=== PATIENT | female | born 1995 | race Caucasian/White ===

== ENCOUNTER 2018-01-30 12:55 | Emergency (ER) | payer OTHER ==
[~2018-01-30] VITALS: Ht 157.5 cm; Wt 59.0 kg
[2018-01-30 13:04] VITALS: BP 121/70
--- NOTE | 2018-01-30 13:09 | NUR ---
URINE CUP HANDED TO PT
--- NOTE | 2018-01-30 13:15 | NUR ---
PT PRESENTS TO ED W C/O EPIGASTRIC PAIN X TODAY W N/V/D. PT DENIES ANY OTHER SMYPTOMS. PER PT "I HAVE BEEN HAVING THE PAIN AND THROWING UP SINCE THIS MORNING I TOOK TWO PILLS FROM [facility] FOR THE VOMITTING AND I THREW THEM BACK UP" PT UNABLE TO RECALL MEDICATION NAME. BOWEL SOUNDS HYPOACTIVE X 4 QUADRANTS. ABDOMEN IS SOFT, NONTENDER. PT VERBALIZES PAIN UPON PALPATION OF EPIGASTRIC REGION. PT PLACED ON MONITOR. VSS. PENDING MD ADLER.
[2018-01-30] MEDS ORDERED: ONDANSETRON 4 MG/2 ML VIAL IVP ONE (13:25)
[2018-01-30] MEDS ORDERED: NACL 0.9% 1,000 ML IV ONE (13:25)
[2018-01-30 13:50] LABS: HEMATOCRIT 39.8 % (36-48); HEMOGLOBIN 13.5 g/dL (12.0-16.0); MEAN CORPUSCULAR HEMOGLOBIN 31 pg (27-31); MEAN CORPUSCULAR HGB CONC 34 g/dL (33-37); MEAN CORPUSCULAR VOLUME 92.5 fL (80-94); PLATELET COUNT (AUTO) 150 K/uL (140-450); RED BLOOD CELL COUNT(AUTO) 4.31 MIL/uL (4.20-5.40); RED CELL DISTRIBUTION WIDTH 12.3 % (11.6-13.7); WHITE BLOOD COUNT (AUTO) 8.6 K/uL (4.8-10.8)
[2018-01-30 14:02] LABS: BASOPHILS % (MANUAL) 0 % (0-2); EOSINOPHILS % (MANUAL) 1 % (0-4); LYMPHOCYTES % (MANUAL) 3 % (20-46); MONOCYTES % (MANUAL) 2 % (5-12)
[2018-01-30 14:05] LABS: ANION GAP 11.9 (8-16); CARBON DIOXIDE 25.7 mmol/L (21-32); CREATININE 0.8 mg/dL (0.6-1.3); POTASSIUM 3.6 mmol/L (3.5-5.1)
[2018-01-30 14:11] LABS: ALBUMIN 3.9 g/dL (3.4-5.0); TOTAL BILIRUBIN 0.9 mg/dL (0.0-1.0)
--- NOTE | 2018-01-30 15:15 | NUR ---
PT RESTING COMFORTABLY. VSS. NO COMPLAINTS AT THIS TIME. WILL CONTINUE TO MONITOR.
--- NOTE | 2018-01-30 15:52 | NUR ---
RADIOLOGY AT BEDSIDE TO TAKE PT TO XRAY VIA WHEELCHAIR
--- NOTE | 2018-01-30 16:15 | NUR ---
PT RETURNED FROM XRAY. PT RESTING COMFORTABLY IN BED. ALL NEEDS MET. WILL CONTINUE TO MONITOR.
[2018-01-30 16:47] VITALS: BP 91/50
== END 2018-01-30 16:48 | disposition home or self-care (01) ==
LOC: MED 12:55
DX: K52.9 Noninfective gastroenteritis and colitis, unspecified (principal)
CPT/HCPCS: 36415; 74022; 80053; 81002; 81025; 85025; 96361; 96374; 99285; J2405; J7030